=== PATIENT | female | born 1985 | race Caucasian/White ===

== ENCOUNTER 2024-02-23 21:30 | Emergency (ER) | payer OTHER ==
[2024-02-23] MEDS ORDERED: ONDANSETRON 4 MG/2 ML VIAL ONE (22:04)
[2024-02-23] MEDS ORDERED: KETOROLAC 30 MG/ML INJ ONE (22:04)
[2024-02-23] MEDS ORDERED: NA CHLORIDE 0.9% 1,000 ML ONE (22:04)
[2024-02-23 22:43] LABS: Absolute Basophils 0.1 K/uL (0-0.5); Absolute Eosinophils 0.3 K/uL (0-0.5); Absolute Lymphocytes (CBC) 3.6 K/uL (0.7-4.9); Absolute Monocytes 1.1 K/uL (0.1-1.3); Absolute Neutrophil 5.6 K/uL (1.8-8.0); Basophils % 0.5 % (0-1.3); Eosinophils % 2.7 % (0-4.4); Hematocrit 38.2 % (36.0-45.0); Hemoglobin 13.1 g/dL (12.0-15.0); Lymphocytes % 33.7 % (15.3-44.8); MCH 28.8 pg (27.0-35.0); MCHC 34.2 g/dL (32.0-36.0); MCV 84.2 fL (80-100); MPV 8.2 fL (7.6-11.3); Monocytes % 10.2 % (3.3-12.3); Neutrophils % 52.9 % (41.7-73.7); Nucleated Red Blood Cells % 0.3 % (0-0); Platelets 282 thou/uL (152-406); RBC Red Blood Cell Count 4.54 M/uL (3.86-4.86); Red Cell Distribution Width 14.2 % (12.1-15.2)
[2024-02-23 22:46] LABS: ALT/SGPT 21 U/L (13-56); AST/SGOT 12 U/L (15-37); Albumin 3.4 g/dL (3.4-5.0); Albumin/Globulin Ratio 0.8 (1.1-1.8); Alkaline Phosphatase 48 U/L (45-117); Anion Gap 7.6 mEq/L (5.0-15.0); BUN Blood Urea Nitrogen 25 mg/dL (7-18); Bicarbonate 26 mEq/L (21-32); Bilirubin Total 0.3 mg/dL (0.2-1.0); Globulin 4.1 g/dL (2.3-3.5); Glomerular Filtration Rate 61 ml/min (=/>90); Glucose Level 149 mg/dL (74-106); Lipase 79 U/L (13-75); Potassium 3.6 mEq/L (3.5-5.1); Protein, Total 7.5 g/dL (6.4-8.2); Sodium Level 140 mEq/L (136-145)
[2024-02-23 22:47] LABS: Bilirubin Direct < 0.2 mg/dL (0-0.2); Bilirubin Indirect, Calculated 0.1 mg/dL (0.2-0.8)
[2024-02-24 01:06] LABS: Specific Gravity 1.021 (1.005-1.030); Urine Bacteria None Seen /HPF (<20); Urine Bilirubin NEGATIVE (Negative); Urine Blood Negative (Negative); Urine Clarity Turbid (Clear); Urine Color Light-Yellow (Yellow); Urine Culture Reflex Order NOT NEEDED; Urine Glucose NEGATIVE (Negative); Urine Ketones NEGATIVE (Negative); Urine Microscopic Reflex YN ORDER UMIC; Urine Nitrite NEGATIVE (Negative); Urine Protein NEGATIVE (Negative); Urine RBC <5 /HPF (None Seen); Urine Urobilinogen Normal (Normal); Urine WBC <5 /HPF (<5)
[2024-02-24 01:07] LABS: Specific Gravity 1.021 (1.005-1.030)
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
[2024-02-24 02:53] VITALS: TEMP 97.2
[2024-02-24 02:54] VITALS: BP 159/109; O2SAT 99
== END 2024-02-24 02:08 | disposition home or self-care (01) ==
LOC: ER 21:30
DX: S16.1XXA Strain of muscle, fascia and tendon at neck level, initial encounter (principal); R29.91 Unspecified symptoms and signs involving the musculoskeletal system; V49.49XA Driver injured in collision with other motor vehicles in traffic accident, initial encounter; E11.9 Type 2 diabetes mellitus without complications; I10 Essential (primary) hypertension
CPT/HCPCS: 96361; 85025; 81001; 80048; 36415; 86900; 86850; 84703; 81025; 86901; 80076; 83690; 70450; 72125; 71260; 74177; 96375; 96374; 99284; Q9967; J2405; J7030